=== PATIENT | male | born 1970 | race Caucasian/White ===

== ENCOUNTER 2018-09-05 14:27 | Emergency (ER) | payer OTHER ==
[~2018-09-05] VITALS: Ht 190.5 cm; Wt 95.5 kg
[2018-09-05 14:28] VITALS: BP 164/94
[2018-09-05] MEDS ORDERED: advil (14:35)
[2018-09-05] MEDS ORDERED: PENI500T PO (15:09)
[2018-09-05] MEDS ORDERED: PENICILLIN V POTASSIUM 500 MG TAB PO ONE (15:15)
== END 2018-09-05 15:24 | disposition home or self-care (01) ==
LOC: M ED 14:27
DX: K04.7 Periapical abscess without sinus (principal); F17.210 Nicotine dependence, cigarettes, uncomplicated

== ENCOUNTER → 2018-11-09 | Outpatient (REF) | payer OTHER ==
[~2018-11-09] MED LIST: PENI500T PO; advil
[2018-11-09 11:03] LABS: BASO # 0.1 10^3/uL (0.0-0.2); BASO % 0.9 % (0.0-1.0); EOS # 0.1 10^3/uL (0.0-0.50); EOS % 1.9 % (0.0-3.0); HEMATOCRIT 48.1 % (42.0-52.0); HEMOGLOBIN 16.2 g/dl (13.5-17.5); LYMPH # 1.5 10^3/uL (1.5-4.5); LYMPH % 21.5 % (24.0-44.0); MEAN CORPUSCULAR HEMOGLOBIN 33.3 pg (27.0-33.0); MEAN CORPUSCULAR HGB CONC 33.7 g/dl (32.0-36.5); MEAN CORPUSCULAR VOLUME 98.8 fl (80.0-96.0); MONO # 0.6 10^3/uL (0.0-0.8); MONO % 8.4 % (0.0-5.0); NEUTROPHILS # 4.7 10^3/uL (1.8-7.7); NEUTROPHILS % 66.6 % (36.0-66.0); PLATELET COUNT, AUTOMATED 165 10^3/uL (150-450); RED BLOOD COUNT 4.87 10^6/uL (4.30-6.10)
[2018-11-09 11:36] LABS: ALBUMIN 3.1 GM/DL (3.2-5.2); ALT/SGPT 147 U/L (12-78); BILIRUBIN,TOTAL 0.5 MG/DL (0.2-1.0); BLOOD UREA NITROGEN 12 MG/DL (7-18); CALCIUM LEVEL 7.9 MG/DL (8.5-10.1); CARBON DIOXIDE LEVEL 27 MEQ/L (21-32); CHLORIDE LEVEL 106 MEQ/L (98-107); CREATININE FOR GFR 1.13 MG/DL (0.70-1.30); FOLATE 4.2 NG/ML; GLOMERULAR FILTRATION RATE > 60.0 (>60); GLUCOSE, FASTING 120 MG/DL (70-100); POTASSIUM SERUM 4.5 MEQ/L (3.5-5.1); RHEUMATOID FACTOR QUANT < 10.0 IU/ML (<15.0); SODIUM LEVEL 139 MEQ/L (136-145); TOTAL PROTEIN 7.2 GM/DL (6.4-8.2); VITAMIN B12 LEVEL 461 PG/ML
[2018-11-09 11:37] LABS: HEMOGLOBIN A1c 5.6 %
[2018-11-09 12:01] LABS: ERYTHROCYTE SEDIMENTATION RATE 5 mm/hr (0-15)
[2018-11-11 13:30] LABS: ALBUMIN 4.29 GM/DL (3.29-5.55); ALBUMIN % 59.6 % (55.8-66.1); ALPHA-1-GLOBULIN % 5.4 % (2.9-4.9); ALPHA-1-GLOBULINS 0.39 GM/DL (0.17-0.41); ALPHA-2-GLOBULINS 0.59 GM/DL (0.42-0.99); ALPHA-2-GLOBULINS % 8.2 % (7.1-11.8); BETA-1-GLOBULINS 0.43 GM/DL (0.28-0.60); BETA-2-GLOBULINS 0.37 GM/DL (0.19-0.55); BETA-2-GLOBULINS % 5.2 % (3.2-6.5); GAMMA GLOBULIN % 15.6 % (11.1-18.8); GAMMA GLOBULINS 1.12 GM/DL (0.65-1.58)
== END ==
LOC: M LABNEURO 09:01
PROVIDERS: ATTEND Psychiatry & Neurology Neurology
DX: E11.9 Type 2 diabetes mellitus without complications (principal); E07.9 Disorder of thyroid, unspecified

== ENCOUNTER → 2018-12-21 | Outpatient (CLI) | payer OTHER ==
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
== END ==
LOC: M RAD 10:01
PROVIDERS: ATTEND Psychiatry & Neurology Neurology
DX: M79.5 Residual foreign body in soft tissue (principal)

== ENCOUNTER → 2021-03-13 | Outpatient (CLI) | payer OTHER ==
[2021-03-13 16:57] LABS: BASO # 0.1 10^3/uL (0.0-0.2); BASO % 0.8 % (0.0-1.0); EOS # 0.1 10^3/uL (0.0-0.5); EOS % 1.3 % (0.0-3.0); HEMATOCRIT 47.5 % (42.0-52.0); HEMOGLOBIN 15.3 g/dl (13.5-17.5); LYMPH # 1.7 10^3/uL (1.5-5.0); LYMPH % 21.6 % (24.0-44.0); MEAN CORPUSCULAR HEMOGLOBIN 32.4 pg (27.0-33.0); MEAN CORPUSCULAR HGB CONC 32.2 g/dl (32.0-36.5); MEAN CORPUSCULAR VOLUME 100.6 fl (80.0-96.0); MONO # 0.7 10^3/uL (0.0-0.8); MONO % 9.3 % (2.0-8.0); NEUTROPHILS # 5.2 10^3/uL (1.5-8.5); NEUTROPHILS % 66.5 % (36.0-66.0); PLATELET COUNT, AUTOMATED 157 10^3/uL (150-450); RED BLOOD COUNT 4.72 10^6/uL (4.30-6.10); WHITE BLOOD COUNT 7.7 10^3/uL (4.0-10.0)
[2021-03-13 17:22] LABS: ALBUMIN 3.5 GM/DL (3.2-5.2); ALT/SGPT 77 U/L (12-78); BILIRUBIN,TOTAL 0.5 MG/DL (0.2-1.0); BLOOD UREA NITROGEN 16 MG/DL (7-18); CALCIUM LEVEL 9.2 MG/DL (8.5-10.1); CARBON DIOXIDE LEVEL 27 MEQ/L (21-32); CHLORIDE LEVEL 108 MEQ/L (98-107); CREATININE FOR GFR 1.27 MG/DL (0.70-1.30); FOLATE 7.1 NG/ML; FREE THYROXINE INDEX 3.1 % (1.4-3.8); GLOMERULAR FILTRATION RATE > 60.0 (>56); GLUCOSE, FASTING 96 MG/DL (70-100); HEPATITIS B SURFACE ANTIBODY NEGATIVE (POSITIVE); POTASSIUM SERUM 4.4 MEQ/L (3.5-5.1); RHEUMATOID FACTOR QUANT < 10.0 IU/ML (<15.0); SODIUM LEVEL 141 MEQ/L (136-145); T UPTAKE 30 % (33-40); THYROXINE (T4) 10.3 UG/DL (4.5-12.0); TOTAL PROTEIN 7.2 GM/DL (6.4-8.2); VITAMIN B12 LEVEL 219 PG/ML
[2021-03-13 17:59] LABS: HEPATITIS C VIRUS ABY INDEX 0.4 INDEX (<0.8)
[2021-03-13 18:00] LABS: ERYTHROCYTE SEDIMENTATION RATE 11 mm/hr (0-20)
[2021-03-13 18:02] LABS: HEPATITIS A ANTIBODY IGM NEGATIVE (NEGATIVE)
[2021-03-13 18:06] LABS: HEMOGLOBIN A1c 5.3 %
[2021-03-14 12:03] LABS: ALBUMIN 4.28 GM/DL (3.29-5.55); ALBUMIN % 59.4 % (55.8-66.1); ALPHA-1-GLOBULINS 0.29 GM/DL (0.17-0.41); ALPHA-2-GLOBULINS 0.79 GM/DL (0.42-0.99); BETA-1-GLOBULINS % 6.9 % (4.7-7.2); BETA-2-GLOBULINS 0.41 GM/DL (0.19-0.55); BETA-2-GLOBULINS % 5.7 % (3.2-6.5); GAMMA GLOBULINS 0.94 GM/DL (0.65-1.58)
== END ==
LOC: M PLALAB 13:07
PROVIDERS: ATTEND Psychiatry & Neurology Neurology
DX: E11.42 Type 2 diabetes mellitus with diabetic polyneuropathy (principal); E07.9 Disorder of thyroid, unspecified; K75.9 Inflammatory liver disease, unspecified

== ENCOUNTER 2021-08-02 07:59 | Day surgery (SDC) | payer OTHER ==
[~2021-08-02] VITALS: Ht 190.5 cm; Wt 99.4 kg
[~2021-08-02 07:59] MED LIST changes: +CELE1CAP9 PO; +NS 1,000 ML IV ONE
[2021-08-02] MEDS ORDERED: LIDOCAINE 2% 100MG/5ML SDV (FOR ANES.) As Ordered ONE (08:11)
[2021-08-02] MEDS ORDERED: propofoL 200 MG/20 ML VIAL As Ordered ONE ×3 (08:11→09:35)
[2021-08-02] MEDS ORDERED: CELE1CAP4 PO (08:29)
[2021-08-02 10:15] VITALS: BP 145/98
== END 2021-08-02 10:22 | disposition home or self-care (01) ==
LOC: M OPP 07:59
PROVIDERS: ATTEND Internal Medicine Gastroenterology
DX: Z12.11 Encounter for screening for malignant neoplasm of colon (principal); D12.3 Benign neoplasm of transverse colon; D12.4 Benign neoplasm of descending colon; K57.30 Diverticulosis of large intestine without perforation or abscess without bleeding; K64.8 Other hemorrhoids; Z79.899 Other long term (current) drug therapy; F17.210 Nicotine dependence, cigarettes, uncomplicated

== ENCOUNTER → 2021-09-04 | Outpatient (CLI) | payer OTHER ==
[~2021-09-04] MED LIST changes: +CELE1CAP4 PO; +GABA-1171 PO; -NS 1,000 ML IV ONE
== END ==
LOC: M RAD 08:30
PROVIDERS: ATTEND Orthopaedic Surgery
DX: M17.11 Unilateral primary osteoarthritis, right knee (principal)

== ENCOUNTER → 2021-09-09 | Outpatient (CLI) | payer OTHER | LOC: M EKG 10:39 | PROVIDERS: ATTEND Anesthesiology | DX: Z01.818 Encounter for other preprocedural examination (principal) ==

== ENCOUNTER 2021-09-18 06:07 | Day surgery (SDC) | payer OTHER ==
[~2021-09-18] VITALS: Ht 190.5 cm; Wt 103.3 kg
[~2021-09-18 06:07] MED LIST changes: +LIDOCAINE 1% MDV 20ML VIAL SQ PRN; +LR 1,000 ML IV ONE; +ceFAZolin SOD 2 GM in IV 1 EA IV SCH; +oxyCODONE 5MG TAB PO ONE
[2021-09-18] MEDS ORDERED: ceFAZolin SOD 2 GM in IV 1 EA IV ONE (06:40)
[2021-09-18] MEDS ORDERED: ROPIVA 100MG/KETOR 15MG/EPINEPHRINE 0.3MG IN NS 50ML SYRINGE PA ONE (07:00)
[2021-09-18] MEDS ORDERED: ROPIvacaine 0.5% 30ML INJECTION (J2795 PER 1MG) XX ONE (07:00)
[2021-09-18] MEDS ORDERED: dexameTHASONE 10MG/1ML VIAL PRES.FREE (J1100 PER 1MG) XX ONE (07:00)
[2021-09-18] MEDS ORDERED: LIDOCAINE 1% MDV 20ML VIAL XX ONE (07:00)
[2021-09-18] MEDS: GABAPENTIN 300 MG CAP PO ONE ×2 (07:05→07:14)
[2021-09-18] MEDS ORDERED: TRANEXAMIC ACID 100 MG/ML 10ML VIAL As Ordered ONE (07:11)
[2021-09-18] MEDS ORDERED: ACETAMINOPHEN 1000MG 100ML IV BTL (OFIRMEV) (J0131 PER 10MG) As Ordered ONE ×2 (07:16→12:50)
[2021-09-18] MEDS ORDERED: LIDOCAINE 2% 100MG/5ML SDV (FOR ANES.) As Ordered ONE (07:16)
[2021-09-18] MEDS ORDERED: propofoL 500 MG/50 ML VIAL As Ordered ONE ×2 (07:17→11:26)
[2021-09-18] MEDS ORDERED: PREGABALIN 75 MG CAP(LYRICA) PO ONE (07:20)
[2021-09-18] MEDS ORDERED: CELE100C PO (10:24)
[2021-09-18] MEDS ORDERED: OXYC1TAB23 PO (10:24)
[2021-09-18] MEDS ORDERED: XARE10TA PO (10:24)
[2021-09-18] MEDS: fentaNYL 100 MCG/2 ML INJECTION IV PRN ×2 (10:35→10:36)
[2021-09-18] MEDS: MIDAZOLAM INJ 2MG/2ML VIAL (J2250 PER 1MG) IV PRN ×2 (10:35→10:36)
[2021-09-18] MEDS ORDERED: VANCOMYCIN 1000MG/20ML VIAL As Ordered ONE (11:14)
[2021-09-18] MEDS ORDERED: propofoL 200 MG/20 ML VIAL As Ordered ONE ×2 (12:41→13:23)
[2021-09-18] MEDS ORDERED: fentaNYL 100 MCG/2 ML INJECTION As Ordered ONE (13:03)
[2021-09-18] MEDS ORDERED: KETOROLAC 60MG 2ML VIAL As Ordered ONE (13:41)
[2021-09-18] MEDS ORDERED: ONDANSETRON 4MG/2ML VIAL IV PRN (14:55)
[2021-09-18] MEDS ORDERED: fentaNYL 100 MCG/2 ML INJECTION IV PRN (14:55)
[2021-09-18] MEDS ORDERED: oxyCODONE 5MG TAB PO PRN (14:55)
[2021-09-18] MEDS ORDERED: LR 1,000 ML IV SCH ×2 (14:55)
[2021-09-18] MEDS ORDERED: HYDROMORPHONE HCL 0.5 MG/ 0.5 ML SYRINGE (J1170 PER 1) IV PRN (14:55)
[2021-09-18] MEDS ORDERED: PERCOCET 5MG/325MG TAB PO PRN (15:05)
[2021-09-18] MEDS ORDERED: ACETAMINOPHEN TAB 650MG DOSE (2X325MG) PO PRN (15:05)
[2021-09-18 15:40] VITALS: BP 142/80
[2021-09-18 16:15] VITALS: BP 152/92
[2021-09-18] MEDS ORDERED: CelecoXIB 400 MG CAP PO SCH (21:00)
== END 2021-09-18 17:10 | disposition home or self-care (01) ==
LOC: M SDC 06:07 → M MS5PR 15:30 → M SDC 17:10
PROVIDERS: ATTEND Orthopaedic Surgery
DX: M17.11 Unilateral primary osteoarthritis, right knee (principal); F17.218 Nicotine dependence, cigarettes, with other nicotine-induced disorders; L80 Vitiligo; Z79.899 Other long term (current) drug therapy
CPT/HCPCS: 27447; 64447; 73560; 88304; 88311; 97116; 97161; 97530; C1776; J0131; J0690; J1885; J2250; J2405; J3010; J3370; S2900

== ENCOUNTER → 2021-09-25 | Outpatient (CLI) | payer OTHER ==
[~2021-09-25] MED LIST changes: +CELE100C PO; -LIDOCAINE 1% MDV 20ML VIAL SQ PRN; -LR 1,000 ML IV ONE; +OXYC1TAB23 PO; +XARE10TA PO; -ceFAZolin SOD 2 GM in IV 1 EA IV SCH; -oxyCODONE 5MG TAB PO ONE
== END ==
LOC: M SOG 11:10
PROVIDERS: ATTEND Orthopaedic Surgery
DX: Z96.651 Presence of right artificial knee joint (principal); M25.561 Pain in right knee

== ENCOUNTER 2023-03-05 19:02 | Emergency (ER) | payer OTHER ==
[~2023-03-05] VITALS: Ht 193 cm; Wt 102.3 kg
[2023-03-05 19:03] VITALS: TEMP 98.6; O2SAT 100
[2023-03-05 19:21] VITALS: BP 164/98
== END 2023-03-05 20:59 | disposition left against medical advice (07) ==
LOC: M ED 19:02
DX: Z53.21 Procedure and treatment not carried out due to patient leaving prior to being seen by health care provider (principal)